=== PATIENT | female | born 1975 | race Caucasian/White ===

== ENCOUNTER 2016-10-06 12:41 | Inpatient (IN) | payer OTHER ==
[2016-10-06 14:34] VITALS: BMI 24.4
[2016-10-06] MEDS ORDERED: guaiFENesin/D-METHORPHAN HB 10 ML UNIT-DOSE CUPS PO PRN (15:23)
[2016-10-06] MEDS ORDERED: P-EPHED 60MG/TRIPROLIDI 2.5MG TABLET PO PRN (15:23)
[2016-10-06] MEDS ORDERED: MAGNESIUM CITRATE 300 ML BOTTLE PO PRN (15:23)
[2016-10-06] MEDS ORDERED: ACETAMINOPHEN 325 MG TABLET (FP) PO PRN (15:23)
[2016-10-06] MEDS ORDERED: MENTHOL/PHENOL 1 EACH UD MM PRN (15:23)
[2016-10-06] MEDS ORDERED: MAG HYDROX/AL HYDROX/SIMETH 30 ML UNIT-DOSE CUP PO PRN (15:23)
[2016-10-06] MEDS ORDERED: MAGNESIUM HYDROX 2400MG/30ML ORAL SUSPENSION 30 ML CUP PO PRN (15:23)
[2016-10-06] MEDS ORDERED: diphenhydrAMINE HCL 50 MG CAPSULE PO PRN (15:23)
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
[2016-10-06] MEDS ORDERED: METHADONE HCL 10 MG TABLET (FOR DETOX USE ONLY) PO ONE ×2 (17:00→23:00)
[2016-10-06] MEDS ORDERED: ONDANSETRON *ODT* 4 MG TABLET SL ONE (17:00)
[2016-10-06] MEDS ORDERED: ONDANSETRON 4 MG TABLET PO ONE (17:00)
[2016-10-06] MEDS: CYCLOBENZAPRINE HCL 10 MG TABLET (FP) PO SCH ×2 (17:03→22:27)
[2016-10-06] MEDS: diazePAM 5 MG TABLET PO PRN ×2 (17:03→22:27)
[2016-10-06 20:32] LABS: URINE APPEARANCE CLOUDY; URINE BILIRUBIN NEGATIVE (NEGATIVE); URINE BLOOD NEGATIVE (NEGATIVE); URINE COLOR DKYELLOW; URINE GLUCOSE (UA) NEGATIVE (NEGATIVE); URINE KETONE NEGATIVE (NEGATIVE); URINE NITRITE NEGATIVE (NEGATIVE); URINE PROTEIN NEGATIVE (NEGATIVE); URINE UROBILINOGEN NEGATIVE E.U./dl (0.2-1.0)
[2016-10-06 20:35] LABS: URINE LEUK ESTERASE TRACE (NEGATIVE)
[2016-10-06 20:39] LABS: CALCIUM OXALATE CRYSTALS RARE /hpf (NONE SEEN); URINE BACTERIA MANY /hpf (NONE SEEN); URINE MUCUS MANY; URINE RBC 3 /hpf (0-3); URINE WBC 12 /hpf (3-5); YEAST RARE
[2016-10-06] MEDS ORDERED: NAPROXEN 500 MG TABLET (FP) PO SCH (22:00)
[2016-10-06] MEDS: ZOLPIDEM TARTRATE 10 MG TABLET (PARK CARE ONLY) PO PRN (22:27)
[2016-10-06] MEDS: THIAMINE HCL 100 MG TABLET (FP) PO SCH (22:27)
[2016-10-07] MEDS: diazePAM 5 MG TABLET PO PRN ×4 (05:04→22:34)
[2016-10-07] MEDS: CYCLOBENZAPRINE HCL 10 MG TABLET (FP) PO SCH ×3 (05:04→22:31)
--- NOTE | 2016-10-07 09:59 | CONSULT ---
[facility] Psychiatric Consult - Data Date of interview: 10/07/16 Admission source: [facility] Identifying data: This is 41 years old female with no psychiatric hospitalization history intoxicated with : Cocaine, Heroin, Cannabis and Nicotine Substance Abuse History: - Smoking Cessation. Smoking history: Current some day smoker. Have you smoked in the past 12 months: Yes. Aproximately how many cigarettes per day: 2. If you are a former smoker, when did you quit?: recently. Hx Chewing Tobacco Use: No. Initiated information on smoking cessation: Yes. 'Breaking Loose' booklet given: 10/06/16. - Substance & Tx. History. Hx Alcohol Use: No. Hx Substance Use: Yes. Substance Use Type: Cocaine, Heroin, Marijuana, Opiates, Prescribed, Tranquilizers. Hx Substance Use Treatment: Yes (recently at [facility]). - Substances Abused. Heroin. Route: Injection. Frequency: Daily. Amount used: 2-3 GMS (20 BAGS). Age of first use: 40. Date of Last Use: 10/05/16. Cocaine. Route: Injection. Frequency: Daily. Amount used: 3 GMS. Age of first use: 40. Date of Last Use : 10/05/16. Marijuana/Hashish. Route: Oral. Frequency: Daily. Amount used : $20. Age of first use: 40. Date of Last Use: 10/05/16 Medical History: LBP Psychiatric History: Patient reprots history of depression, reports not taking psychiatric medications prior to f admission Physical/Sexual Abuse/Trauma History: Denies Additional Comment: Observation. Detox Unit Care Protocol Mental Status Exam - Mental Status Exam Alert and Oriented to: Person Cognitive Function: Fair Patient Appearance: Unkempt Mood: Sad Patient Behavior: Sedated Speech Pattern: Delayed Voice Loudness: Mildly Soft/Quiet Thought Process: Goal Oriented Thought Disorder: Being Controlled Hallucinations: Denies Suicidal Ideation: Denies Homicidal Ideation: Denies Insight/Judgement: Fair Sleep: Difficulty falling asleep Appetite: Fair Muscle strength/Tone: Normal Gait/Station: Shuffling Additional Comments: Observation. Detox Unit Care Protocol Psychiatric Findings - Problem List ([place] 1, 2,3) (1) Benzodiazepine dependence Current Visit: Yes Status: Acute (2) Cocaine dependence Current Visit: No Status: Chronic Qualifiers: Substance use status: uncomplicated Qualified Code(s): F14.20 - Cocaine dependence, uncomplicated (3) Opioid dependence with withdrawal Current Visit: No Status: Chronic (4) Nicotine dependence Current Visit: Yes Status: Acute - Initial Treatment Plan Initial Treatment Plan: Observation. Detox Unit Care Protocol
[2016-10-07] MEDS ORDERED: METHADONE HCL 10 MG TABLET (FOR DETOX USE ONLY) PO ONE (10:00)
[2016-10-07 10:35] LABS: MCH 27.9 pg (25.7-33.7); MCHC 33.4 g/dl (32.0-36.0); MEAN CELL VOLUME 83.5 fl (80-96); MEAN PLT VOLUME 8.6 fl (7.5-11.1); PLATELET COUNT 163 K/MM3 (134-434); RDW 16.2 % (11.6-15.6); WHITE BLOOD COUNT 2.4 K/mm3 (4.0-10.0)
[2016-10-07 11:26] LABS: ALBUMIN 3.3 g/dl (3.4-5.0); ALK PHOS 175 U/L (45-117); ANION GAP 9 (8-16); BILIRUBIN,TOTAL 0.3 mg/dL (0.2-1.0); CALCIUM 8.9 mg/dL (8.5-10.1); CO2 26 mmol/L (21-32); CREATININE 0.7 mg/dL (0.55-1.02); GLUCOSE,RANDOM 91 mg/dL (74-106); SGOT/AST 32 U/L (15-37); SGPT/ALT 72 U/L (12-78); TOT PROT 6.8 g/dl (6.4-8.2)
[2016-10-07] MEDS: PRENATAL VITAMINS W/ FOLIC ACID TABLET (FP) PO SCH (11:27)
--- NOTE | 2016-10-07 11:47 | PN ---
BHS COWS - Scale Resting Pulse: 1= RI 81-100 Sweatin=Flushed/Facial Moisture Restless Observation: 1= Difficult to Sit Still Pupil Size: 0= Normal to Room Light Bone or Joint Aches: 2= Severe Diffuse Aches Runny Nose/ Eye Tearin= Runny Nose/Eyes GI Upset > 30mins: 2= Nausea/Diarrhea Tremor Observation of Outstretched Hands: 2= Slight Tremor Visible Yawning Observation: 2= >3x During Session Anxiety or Irritability: 2=Irritable/Anxious Goose Flesh Skin: 3=Piloerection COWS Score: 19 S Progress Note (SOAP) Subjective: sweats shakes interrupted sleep agitation anxiety i lost alot of weight Objective: 10/07/16 11:46 Vital Signs Temperature 96.3 F L 10/07/16 09:43 Pulse Rate 86 10/07/16 09:43 Respiratory Rate 18 10/07/16 09:43 Blood Pressure 108/70 10/07/16 09:43 O2 Sat by Pulse Oximetry (%) Laboratory Tests 10/06/16 10/07/16 10/07/16 19:00 07:00 07:00 WBC 2.4 L D RBC 4.71 Hgb 13.1 Hct 39.4 MCV 83.5 MCHC 33.4 RDW 16.2 H D Plt Count 163 D MPV 8.6 Sodium 141 Potassium 3.6 Chloride 106 Carbon Dioxide 26 Anion Gap 9 BUN 10 D Creatinine 0.7 Creat Clearance w eGFR > 60 Random Glucose 91 Calcium 8.9 Total Bilirubin 0.3 D AST 32 D ALT 72 D Alkaline Phosphatase 175 H D Total Protein 6.8 Albumin 3.3 L Urine Color Dkyellow Urine Appearance Cloudy Urine pH 5.0 Ur Specific [place] 1.024 Urine Protein Negative Urine Glucose (UA) Negative Urine Ketones Negative Urine Blood Negative Urine Nitrite Negative Urine Bilirubin Negative Urine Urobilinogen Negative Ur Leukocyte Esterase Trace H Urine RBC 3 Urine WBC 12 Ur Epithelial Cells Moderate Calcium Oxalate Crystal Rare Urine Bacteria Many Urine Mucus Many Urine Yeast Rare awake/alert ambulating no acute distress repeat u/a Assessment: 10/07/16 11:47 withdrawal sx Plan: continue detox increase fluids repeat u/a
--- NOTE | 2016-10-07 12:30 | EKG ---
Test Reason : Blood Pressure : / mmHG Vent. Rate : 070 BPM Atrial Rate : 070 BPM P-R Int : 156 ms QRS Dur : 096 ms QT Int : 388 ms P-R-T Axes : 067 082 061 degrees QTc Int : 419 ms NORMAL SINUS RHYTHM POSSIBLE LEFT ATRIAL ENLARGEMENT EARLY REPOLARIZATION BORDERLINE ECG WHEN COMPARED WITH ECG OF 19-DEC-2015 22:41, NO SIGNIFICANT CHANGE WAS FOUND Confirmed by PETAR HERRERA, BRYN ([id number]) on 10/07/2016 12:30:15 PM Referred By: Confirmed By:BRYN DAVEY MD
[2016-10-07 13:15] LABS: HIV 1 & 2 AB NEGATIVE; HIV 1 AGp24 NEGATIVE
[2016-10-07] MEDS: THIAMINE HCL 100 MG TABLET (FP) PO SCH (22:31)
[2016-10-07] MEDS: ZOLPIDEM TARTRATE 10 MG TABLET (PARK CARE ONLY) PO PRN (22:34)
[2016-10-08] MEDS: CYCLOBENZAPRINE HCL 10 MG TABLET (FP) PO SCH ×3 (05:11→22:11)
[2016-10-08] MEDS: diazePAM 5 MG TABLET PO PRN ×4 (05:12→22:11)
[2016-10-08] MEDS ORDERED: METHADONE HCL 5 MG TABLET (FOR DETOX USE ONLY) PO ONE (10:00)
[2016-10-08] MEDS: PRENATAL VITAMINS W/ FOLIC ACID TABLET (FP) PO SCH (10:22)
[2016-10-08] MEDS: ONDANSETRON *ODT* 4 MG TABLET SL PRN (10:58)
--- NOTE | 2016-10-08 13:00 | PN ---
S COWS - Scale Resting Pulse: 1= [place] 81-100 Sweatin=Flushed/Facial Moisture Restless Observation: 1= Difficult to Sit Still Pupil Size: 1= Pupils >than Normal Bone or Joint Aches: 2= Severe Diffuse Aches Runny Nose/ Eye Tearin= Nasal Congestion GI Upset > 30mins: 2= Nausea/Diarrhea Tremor Observation of Outstretched Hands: 1= Tremor [place], Not Seen Yawning Observation: 1= 1-2x During Session Anxiety or Irritability: 2=Irritable/Anxious Goose Flesh Skin: 0=Smooth Skin COWS Score: 14 S Progress Note (SOAP) Subjective: INTERRUPTED SLEEP, SWEATS ,NAUSEA LBP, LEG PAINS Objective: 10/08/16 12:58 Vital Signs Temperature 97.5 F L 10/08/16 10:09 Pulse Rate 94 H 10/08/16 10:09 Respiratory Rate 20 10/08/16 10:09 Blood Pressure 105/63 10/08/16 10:09 O2 Sat by Pulse Oximetry (%) Laboratory Tests 10/06/16 10/06/16 10/07/16 09:26 19:00 07:00 WBC 2.4 L D RBC 4.71 Hgb 13.1 Hct 39.4 MCV 83.5 MCHC 33.4 RDW 16.2 H D Plt Count 163 D MPV 8.6 Sodium Potassium Chloride Carbon Dioxide Anion Gap BUN Creatinine Creat Clearance w eGFR Random Glucose Calcium Total Bilirubin AST ALT Alkaline Phosphatase Total Protein Albumin Urine Color Dkyellow Urine Appearance Cloudy Urine pH 5.0 Ur Specific [place] 1.024 Urine Protein Negative Urine Glucose (UA) Negative Urine Ketones Negative Urine Blood Negative Urine Nitrite Negative Urine Bilirubin Negative Urine Urobilinogen Negative Ur Leukocyte Esterase Trace H Urine RBC 3 Urine WBC 12 Ur Epithelial Cells Moderate Calcium Oxalate Crystal Rare Urine Bacteria Many Urine Mucus Many Urine Yeast Rare RPR Titer HIV 1&2 Antibody Screen Negative HIV P24 Antigen Negative 10/07/16 10/07/16 07:00 07:00 WBC RBC Hgb Hct MCV MCHC RDW Plt Count MPV Sodium 141 Potassium 3.6 Chloride 106 Carbon Dioxide 26 Anion Gap 9 BUN 10 D Creatinine 0.7 Creat Clearance w eGFR > 60 Random Glucose 91 Calcium 8.9 Total Bilirubin 0.3 D AST 32 D ALT 72 D Alkaline Phosphatase 175 H D Total Protein 6.8 Albumin 3.3 L Urine Color Urine Appearance Urine pH Ur Specific [place] Urine Protein Urine Glucose (UA) Urine Ketones Urine Blood Urine Nitrite Urine Bilirubin Urine Urobilinogen Ur Leukocyte Esterase Urine RBC Urine WBC Ur Epithelial Cells Calcium Oxalate Crystal Urine Bacteria Urine Mucus Urine Yeast RPR Titer Nonreactive HIV 1&2 Antibody Screen HIV P24 Antigen PT AOX3 , AMBUALTING Assessment: 10/08/16 12:59 WITHDRAWL SX'S LBP Plan: CONT. DETOX INCREASE FLUIDS ANALGESIC BALM MOTRIN PRN
[2016-10-08] MEDS: ZOLPIDEM TARTRATE 10 MG TABLET (PARK CARE ONLY) PO PRN (22:10)
[2016-10-08] MEDS: THIAMINE HCL 100 MG TABLET (FP) PO SCH (22:11)
[2016-10-08] MEDS: METHYL SALICYLATE/MENTHOL OINT 30 GM TUBE TP SCH (22:12)
[2016-10-09] MEDS: CYCLOBENZAPRINE HCL 10 MG TABLET (FP) PO SCH ×3 (05:51→22:13)
[2016-10-09] MEDS: diazePAM 5 MG TABLET PO PRN ×3 (05:52→15:11)
[2016-10-09] MEDS ORDERED: METHADONE HCL 5 MG TABLET (FOR DETOX USE ONLY) PO ONE (10:00)
[2016-10-09] MEDS: PRENATAL VITAMINS W/ FOLIC ACID TABLET (FP) PO SCH (10:09)
[2016-10-09] MEDS: METHYL SALICYLATE/MENTHOL OINT 30 GM TUBE TP SCH ×2 (10:10→22:54)
--- NOTE | 2016-10-09 10:47 | PN ---
BHS Progress Note (SOAP) Subjective: shakes sweats interrupted sleep agitation body aches Objective: 10/09/16 10:46 Vital Signs Temperature 98.1 F 10/09/16 10:05 Pulse Rate 98 H 10/09/16 10:05 Respiratory Rate 18 10/09/16 10:05 Blood Pressure 115/73 10/09/16 10:05 O2 Sat by Pulse Oximetry (%) Laboratory Tests 10/06/16 10/06/16 10/07/16 09:26 19:00 07:00 WBC 2.4 L D RBC 4.71 Hgb 13.1 Hct 39.4 MCV 83.5 MCHC 33.4 RDW 16.2 H D Plt Count 163 D MPV 8.6 Sodium Potassium Chloride Carbon Dioxide Anion Gap BUN Creatinine Creat Clearance w eGFR Random Glucose Calcium Total Bilirubin AST ALT Alkaline Phosphatase Total Protein Albumin Urine Color Dkyellow Urine Appearance Cloudy Urine pH 5.0 Ur Specific [place] 1.024 Urine Protein Negative Urine Glucose (UA) Negative Urine Ketones Negative Urine Blood Negative Urine Nitrite Negative Urine Bilirubin Negative Urine Urobilinogen Negative Ur Leukocyte Esterase Trace H Urine RBC 3 Urine WBC 12 Ur Epithelial Cells Moderate Calcium Oxalate Crystal Rare Urine Bacteria Many Urine Mucus Many Urine Yeast Rare RPR Titer HIV 1&2 Antibody Screen Negative HIV P24 Antigen Negative 10/07/16 10/07/16 07:00 07:00 WBC RBC Hgb Hct MCV MCHC RDW Plt Count MPV Sodium 141 Potassium 3.6 Chloride 106 Carbon Dioxide 26 Anion Gap 9 BUN 10 D Creatinine 0.7 Creat Clearance w eGFR > 60 Random Glucose 91 Calcium 8.9 Total Bilirubin 0.3 D AST 32 D ALT 72 D Alkaline Phosphatase 175 H D Total Protein 6.8 Albumin 3.3 L Urine Color Urine Appearance Urine pH Ur Specific [place] Urine Protein Urine Glucose (UA) Urine Ketones Urine Blood Urine Nitrite Urine Bilirubin Urine Urobilinogen Ur Leukocyte Esterase Urine RBC Urine WBC Ur Epithelial Cells Calcium Oxalate Crystal Urine Bacteria Urine Mucus Urine Yeast RPR Titer Nonreactive HIV 1&2 Antibody Screen HIV P24 Antigen awake/alert ambulating no acute distress Assessment: 10/09/16 10:46 withdrawal sx Plan: continue detox increase fluids motrin/tylenol prn
[2016-10-09] MEDS: THIAMINE HCL 100 MG TABLET (FP) PO SCH (22:13)
[2016-10-09] MEDS: ZOLPIDEM TARTRATE 10 MG TABLET (PARK CARE ONLY) PO PRN (22:13)
[2016-10-10] MEDS: CYCLOBENZAPRINE HCL 10 MG TABLET (FP) PO SCH ×3 (06:10→22:45)
[2016-10-10] MEDS: ONDANSETRON *ODT* 4 MG TABLET SL PRN ×2 (06:10→17:56)
[2016-10-10] MEDS ORDERED: METHADONE HCL 10 MG TABLET (FOR DETOX USE ONLY) PO ONE (10:00)
[2016-10-10] MEDS: PRENATAL VITAMINS W/ FOLIC ACID TABLET (FP) PO SCH (10:49)
[2016-10-10] MEDS: METHYL SALICYLATE/MENTHOL OINT 30 GM TUBE TP SCH ×2 (10:49→23:00)
[2016-10-10] MEDS: hydrOXYzine PAMOATE 50 MG CAPSULE (FP) PO PRN ×3 (10:49→22:45)
--- NOTE | 2016-10-10 12:14 | PN ---
BHS Progress Note (SOAP) Subjective: nausea, sweats, interrupted sleep, anxiety, tremors Objective: 10/10/16 12:13 Vital Signs - 8 hr 10/10/16 10/10/16 06:00 10:35 Temperature 96.4 F L 97.7 F Pulse Rate 81 101 H Respiratory 18 20 Rate Blood Pressure 130/78 108/73 Laboratory Tests 10/06/16 10/06/16 10/07/16 09:26 19:00 07:00 WBC 2.4 L D RBC 4.71 Hgb 13.1 Hct 39.4 MCV 83.5 MCHC 33.4 RDW 16.2 H D Plt Count 163 D MPV 8.6 Sodium Potassium Chloride Carbon Dioxide Anion Gap BUN Creatinine Creat Clearance w eGFR Random Glucose Calcium Total Bilirubin AST ALT Alkaline Phosphatase Total Protein Albumin Urine Color Dkyellow Urine Appearance Cloudy Urine pH 5.0 Ur Specific [place] 1.024 Urine Protein Negative Urine Glucose (UA) Negative Urine Ketones Negative Urine Blood Negative Urine Nitrite Negative Urine Bilirubin Negative Urine Urobilinogen Negative Ur Leukocyte Esterase Trace H Urine RBC 3 Urine WBC 12 Ur Epithelial Cells Moderate Calcium Oxalate Crystal Rare Urine Bacteria Many Urine Mucus Many Urine Yeast Rare RPR Titer Hepatitis C Antibody HIV 1&2 Antibody Screen Negative HIV P24 Antigen Negative 10/07/16 10/07/16 10/09/16 07:00 07:00 07:00 WBC RBC Hgb Hct MCV MCHC RDW Plt Count MPV Sodium 141 Potassium 3.6 Chloride 106 Carbon Dioxide 26 Anion Gap 9 BUN 10 D Creatinine 0.7 Creat Clearance w eGFR > 60 Random Glucose 91 Calcium 8.9 Total Bilirubin 0.3 D AST 32 D ALT 72 D Alkaline Phosphatase 175 H D Total Protein 6.8 Albumin 3.3 L Urine Color Urine Appearance Urine pH Ur Specific [place] Urine Protein Urine Glucose (UA) Urine Ketones Urine Blood Urine Nitrite Urine Bilirubin Urine Urobilinogen Ur Leukocyte Esterase Urine RBC Urine WBC Ur Epithelial Cells Calcium Oxalate Crystal Urine Bacteria Urine Mucus Urine Yeast RPR Titer Nonreactive Hepatitis C Antibody 8.2 H HIV 1&2 Antibody Screen HIV P24 Antigen Hep cab +ve Assessment: 10/10/16 12:13 withdrawal sx, hepatitis c+ Plan: cont detox, patient counseled re: hep c antibody status and need for follow up
[2016-10-10 22:31] VITALS: TEMP 98.1
[2016-10-10] MEDS: THIAMINE HCL 100 MG TABLET (FP) PO SCH (22:45)
[2016-10-11] MEDS ORDERED: TRIMETHOBENZAMIDE HCL 200MG/2ML INJ IM PRN (02:29)
[2016-10-11] MEDS: LOPERAMIDE HCL 2 MG CAPSULE PO PRN ×2 (03:07→09:44)
[2016-10-11] MEDS ORDERED: METHADONE HCL 5 MG TABLET (FOR DETOX USE ONLY) PO ONE (06:00)
[2016-10-11] MEDS: CYCLOBENZAPRINE HCL 10 MG TABLET (FP) PO SCH (06:09)
[2016-10-11 06:55] VITALS: BP 121/70; PULSE 99
--- NOTE | 2016-10-11 08:59 | DS ---
[facility] Detox Discharge Summary Admission Date: 10/06/16 Discharge Date: 10/11/16 - History Present History: Opioid Dependence Pertinent Past History: BACK PAIN - Physical Exam Results Vital Signs: Vital Signs Temperature 98.1 F 10/11/16 06:00 Pulse Rate 99 H 10/11/16 06:00 Respiratory Rate 16 10/11/16 06:00 Blood Pressure 121/70 10/11/16 06:00 O2 Sat by Pulse Oximetry (%) Pertinent Admission Physical Exam Findings: WITHDRAWAL SX. Laboratory Last Values WBC 2.4 K/mm3 (4.0-10.0) L D 10/07/16 07:00 RBC 4.71 M/mm3 (3.60-5.2) 10/07/16 07:00 Hgb 13.1 GM/dL (10.7-15.3) 10/07/16 07:00 Hct 39.4 % (32.4-45.2) 10/07/16 07:00 MCV 83.5 fl (80-96) 10/07/16 07:00 MCHC 33.4 g/dl (32.0-36.0) 10/07/16 07:00 RDW 16.2 % (11.6-15.6) H D 10/07/16 07:00 Plt Count 163 K/MM3 (134-434) D 10/07/16 07:00 MPV 8.6 fl (7.5-11.1) 10/07/16 07:00 Sodium 141 mmol/L (136-145) 10/07/16 07:00 Potassium 3.6 mmol/L (3.5-5.1) 10/07/16 07:00 Chloride 106 mmol/L (98-107) 10/07/16 07:00 Carbon Dioxide 26 mmol/L (21-32) 10/07/16 07:00 Anion Gap 9 (8-16) 10/07/16 07:00 BUN 10 mg/dL (7-18) D 10/07/16 07:00 Creatinine 0.7 mg/dL (0.55-1.02) 10/07/16 07:00 Creat Clearance w eGFR > 60 (>60) 10/07/16 07:00 Random Glucose 91 mg/dL (74-106) 10/07/16 07:00 Calcium 8.9 mg/dL (8.5-10.1) 10/07/16 07:00 Total Bilirubin 0.3 mg/dL (0.2-1.0) D 10/07/16 07:00 AST 32 U/L (15-37) D 10/07/16 07:00 ALT 72 U/L (12-78) D 10/07/16 07:00 Alkaline Phosphatase 175 U/L (45-117) H D 10/07/16 07:00 Total Protein 6.8 g/dl (6.4-8.2) 10/07/16 07:00 Albumin 3.3 g/dl (3.4-5.0) L 10/07/16 07:00 Urine Color Dkyellow 10/06/16 19:00 Urine Appearance Cloudy 10/06/16 19:00 Urine pH 5.0 (5.0-8.0) 10/06/16 19:00 Ur Specific [place] 1.024 (1.001-1.035) 10/06/16 19:00 Urine Protein Negative (NEGATIVE) 10/06/16 19:00 Urine Glucose (UA) Negative (NEGATIVE) 10/06/16 19:00 Urine Ketones Negative (NEGATIVE) 10/06/16 19:00 Urine Blood Negative (NEGATIVE) 10/06/16 19:00 Urine Nitrite Negative (NEGATIVE) 10/06/16 19:00 Urine Bilirubin Negative (NEGATIVE) 10/06/16 19:00 Urine Urobilinogen Negative E.U./dl (0.2-1.0) 10/06/16 19:00 Ur Leukocyte Esterase Trace (NEGATIVE) H 10/06/16 19:00 Urine RBC 3 /hpf (0-3) 10/06/16 19:00 Urine WBC 12 /hpf (3-5) 10/06/16 19:00 Ur Epithelial Cells Moderate /hpf (FEW) 10/06/16 19:00 Calcium Oxalate Crystal Rare /hpf (NONE SEEN) 10/06/16 19:00 Urine Bacteria Many /hpf (NONE SEEN) 10/06/16 19:00 Urine Mucus Many 10/06/16 19:00 Urine Yeast Rare 10/06/16 19:00 RPR Titer Nonreactive (NONREACTIVE) 10/07/16 07:00 Hepatitis C Antibody 8.2 s/co ratio (0.0-0.9) H 10/09/16 07:00 HIV 1&2 Antibody Screen Negative 10/06/16 09:26 HIV P24 Antigen Negative 10/06/16 09:26 LABS NOTED - Treatment Hospital Course: Detox Protocol Followed, Detoxed Safely, Responded well, Discharged Condition Good, Rehab Referral Accepted - Medication Discharge Medications: Ambulatory Orders NK [No Known Home Medication] 12/19/15 - Diagnosis (1) Chronic back pain Current Visit: Yes Status: Acute Qualifiers: Back pain location: low back pain Back pain laterality: bilateral Sciatica presence: without sciatica Qualified Code(s): M54.5 - Low back pain; G89.29 - Other chronic pain (2) Nicotine dependence Current Visit: Yes Status: Acute (3) Cocaine dependence Current Visit: No Status: Chronic Qualifiers: Substance use status: uncomplicated Qualified Code(s): F14.20 - Cocaine dependence, uncomplicated (4) Opioid dependence with withdrawal Current Visit: No Status: Chronic - AMA Did Patient Leave Against Medical Advice: No
[2016-10-11] MEDS: hydrOXYzine PAMOATE 50 MG CAPSULE (FP) PO PRN (09:31)
[2016-10-11] MEDS: ONDANSETRON *ODT* 4 MG TABLET SL PRN (09:32)
[2016-10-15 00:08] LABS: HCV LOG 10 1.602 (.)
== END 2016-10-11 10:45 | disposition home or self-care (01) | DRG 773 ==
LOC: YASAS 12:41 → Y6N 16:08
PROVIDERS: ADMIT Internal Medicine Addiction Medicine; ATTEND Internal Medicine Addiction Medicine
PROC: HZ2ZZZZ Detoxification Services for Substance Abuse Treatment (ICD-10-PCS; principal; 2016-10-06)
DX: F11.23 Opioid dependence with withdrawal (principal); F14.20 Cocaine dependence, uncomplicated; F12.20 Cannabis dependence, uncomplicated; F17.210 Nicotine dependence, cigarettes, uncomplicated; F32.9 Major depressive disorder, single episode, unspecified; M54.5 Low back pain; G89.29 Other chronic pain; B18.2 Chronic viral hepatitis C; E86.0 Dehydration; Z98.1 Arthrodesis status
CPT/HCPCS: 36415; 80053; 81003; 81015; 85027; 86593; 86803; 87389; 87522; 93005; 93010

== ENCOUNTER 2017-05-14 19:05 | Inpatient (IN) | payer OTHER ==
[2017-05-14 19:34] VITALS: BMI 22.4
--- NOTE | 2017-05-14 19:48 | HP ---
Admission ROS [facility] - [facility] Chief Complaint: I WANT TO GO TO REHAB Allergies/Adverse Reactions: Allergies Allergy/AdvReac Type Severity Reaction Status Date / Time amoxicillin Allergy Verified 05/14/17 19:18 ibuprofen Allergy Verified 05/14/17 19:18 History of Present Illness: 42 YEARS OLD FEMALE WITH LONG HISTORY OF MARIJUANA NICOTINE DEPENDENCE HAS ASTHMA AND CHRONIC BACK PAIN, ON SUBOXONE 12-3 MG BID SINCE 10/2016, PATIENT IS DOING WELL BUT BEGIN SMOKING MARIJUANA HAS WEIGHT LOSS IS ADMITTED TO REHAB Exam Limitations: No Limitations - Ebola screening Have you traveled outside of the country in the last 21 days: No Have you had contact with anyone from an Ebola affected area: No Have you been sick,other than usual withdrawal symptoms: No Do you have a fever: No - Review of Systems Constitutional: Loss of Appetite, Unintentional Wgt. Loss, Unexplained wgt Loss , Other (SWEATING TREATED WITH CLONIDINE 0.1 MG PRN Q6H) EENT: reports: No Symptoms Reported Respiratory: reports: SOB with Exertion Cardiac: reports: No Symptoms Reported GI: reports: No Symptoms Reported : reports: No Symptoms Reported Musculoskeletal: reports: Neck Pain (2013 CERVICAL FUSION) Integumentary: reports: No Symptoms Reported Neuro: reports: No Symptoms reported Endocrine: reports: No Symptoms Reported Hematology: reports: No Symptoms Reported Psychiatric: reports: Judgement Intact, Orientated x3, Depressed Other Systems: Reviewed and Negative Patient History - Patient Medical History Hx Anemia: No Hx Asthma: Yes Hx Chronic Obstructive Pulmonary Disease (COPD): No Hx Cancer: No Hx Cardiac Disorders: No Hx Congestive Heart Failure: No Hx Hypertension: No Hx Hypercholesterolemia: No Hx Pacemaker: No HX Cerebrovascular Accident: No Hx Seizures: No Hx Dementia: No Hx Diabetes: No Hx Gastrointestinal Disorders: No Hx Liver Disease: No Hx Genitourinary Disorders: No Hx Sexually Transmitted Disorders: No Hx Renal Disease (ESRD): No Hx Thyroid Disease: No Hx Human Immunodeficiency Virus (HIV): No Hx Hepatitis C: No Hx Depression: Yes Hx Suicide Attempt: No (denies) Hx Bipolar Disorder: No Hx Schizophrenia: No - Patient Surgical History Past Surgical History: Yes Hx Neurologic Surgery: No Hx Cataract Extraction: No Hx Cardiac Surgery: No Hx Lung Surgery: No Hx Breast Surgery: No Hx Breast Biopsy: No Hx Abdominal Surgery: No Hx Appendectomy: No Hx Cholecystectomy: Yes (11/2014) Hx Genitourinary Surgery: No Hx Section: No Hx Orthopedic Surgery: Yes (cervical fusion, 11/2014) Hx Hysterectomy: No Other Surgical History: ENDOMETRIOSIS X 4 Anesthesia Reaction: No - PPD History Previous Implant?: Yes Documented Results: Negative w/proof Implanted On Prior [facility] Admission?: Yes Date: 12/22/15 PPD to be Administered?: Yes - Reproductive History Patient is a Female of Child Bearing Age (11 -55 yrs old): Yes Last Menstrual Period: 04/27/17 Patient : No - Smoking Cessation Smoking history: Current every day smoker Have you smoked in the past 12 months: Yes Aproximately how many cigarettes per day: 2 If you are a former smoker, when did you quit?: recently Hx Chewing Tobacco Use: No Initiated information on smoking cessation: Yes 'Breaking Loose' booklet given: 05/14/17 - Substance & Tx. History Hx Alcohol Use: No Hx Substance Use: Yes Substance Use Type: Marijuana Hx Substance Use Treatment: Yes (10/06-10/11/16 [facility] - Substances Abused Marijuana/Hashish Route: Smoking Frequency: 3-6 times per week Amount used: 3 JOINTS Age of first use: 41 Date of Last Use: 05/14/17 Family Disease History - Family Disease History Family Disease History: Diabetes: Daughter Other Family History: ONLY CHILD Admission Physical Exam BHS - Vital Signs Vital Signs: Vital Signs - 24 hr 05/14/17 19:18 Temperature 97.0 F L Pulse Rate 80 Respiratory 20 Rate Blood Pressure 122/80 - Physical General Appearance: Yes: No Apparent Distress, Appropriately Dressed, Thin HEENTM: Yes: Hearing grossly Normal, Normal ENT Inspection, Normocephalic, Normal Voice Respiratory: Yes: Chest Non-Tender, No Respiratory Distress, No Accessory Muscle Use, Wheezing, Expiration Neck: Yes: Supple, Trachea in good position Breast: Yes: Breasts Symetrical Cardiology: Yes: Regular Rhythm, Regular Rate, S1, S2 Abdominal: Yes: Normal Bowel Sounds, Non Tender, Soft Genitourinary: Yes: Within Normal Limits Back: Yes: Normal Inspection Musculoskeletal: Yes: full range of Motion, Gait Steady, Back pain Extremities: Yes: Normal Inspection, Normal Range of Motion, Non-Tender Neurological: Yes: Fully Oriented, Alert, Motor Strength 5/5, Normal Response, Depressed Affect Integumentary: Yes: Warm Lymphatic: Yes: Within Normal Limits - Diagnostic (1) Nicotine dependence Current Visit: Yes Status: Acute Qualifiers: Nicotine product type: cigarettes Substance use status: in withdrawal Qualified Code(s): F17.213 - Nicotine dependence, cigarettes, with withdrawal (2) Depression Current Visit: Yes Status: Suspected Qualifiers: Depression Type: dysthymia Qualified Code(s): F34.1 - Dysthymic disorder (3) Cannabis dependence, uncomplicated Current Visit: Yes Status: Acute (4) Chronic cervical arteriopathy Current Visit: Yes Status: Chronic (5) Encounter for monitoring Suboxone maintenance therapy Current Visit: Yes Status: Chronic Comment: 12 MG - 3 MG BID SINCE 10/2016 LAST DOSE 05/14/17 PM (6) Asthma Current Visit: Yes Status: Chronic Qualifiers: Asthma severity: mild persistent Asthma complication type: with status asthmaticus Qualified Code(s): J45.32 - Mild persistent asthma with status asthmaticus Cleared for Admission [facility] - Detox or Rehab [facility] Level of Care: Observation Bed Detox Regimen/Protocol: Not Applicable [facility] Breath Alcohol Content Breath Alcohol Content: 0 Urine Pregancy Test - Result Urine Test Results: Negative- NO Line Present Urine Drug Screen - Results Drug Screen Negative: No Urine Drug Screen Results: THC-Marijuana, MET-Methamphetamine
[2017-05-14] MEDS ORDERED: MAGNESIUM CITRATE 300 ML BOTTLE PO PRN (19:55)
[2017-05-14] MEDS ORDERED: NICOTINE POLACRILEX 2 MG GUM BC PRN (19:55)
[2017-05-14] MEDS ORDERED: MAG HYDROX/AL HYDROX/SIMETH 30 ML UNIT-DOSE CUP PO PRN (19:55)
[2017-05-14] MEDS ORDERED: guaiFENesin/D-METHORPHAN HB 10 ML UNIT-DOSE CUPS PO PRN (19:55)
[2017-05-14] MEDS ORDERED: ACETAMINOPHEN 325 MG TABLET (FP) PO PRN (19:55)
[2017-05-14] MEDS ORDERED: MAGNESIUM HYDROX 2400MG/30ML ORAL SUSPENSION 30 ML CUP PO PRN (19:55)
[2017-05-14] MEDS ORDERED: P-EPHED 60MG/TRIPROLIDI 2.5MG TABLET PO PRN (19:55)
[2017-05-14] MEDS ORDERED: LOPERAMIDE HCL 2 MG CAPSULE PO PRN (19:55)
[2017-05-14] MEDS ORDERED: ALBUTEROL SO4 6.7 GM HFA INHALER IH PRN (20:04)
[2017-05-14] MEDS ORDERED: ALBUTEROL SO4 2.5/IPRATROPIUM 0.5 INH SOL 3 ML VIAL.NEB. NEB PRN (20:10)
[2017-05-14 21:35] LABS: URINE APPEARANCE CLOUDY; URINE BILIRUBIN NEGATIVE (NEGATIVE); URINE BLOOD NEGATIVE (NEGATIVE); URINE COLOR LT. YELLOW; URINE GLUCOSE (UA) NEGATIVE (NEGATIVE); URINE KETONE NEGATIVE (NEGATIVE); URINE LEUK ESTERASE NEGATIVE (NEGATIVE); URINE NITRITE NEGATIVE (NEGATIVE); URINE PROTEIN NEGATIVE (NEGATIVE); URINE UROBILINOGEN 0.2 mg/dL (0.2-1.0)
[2017-05-14] MEDS ORDERED: BUPRENORPHINE HCL SL SCH (22:00)
[2017-05-14] MEDS ORDERED: [UNRECOGNIZED DRUG - OTHER] SL SCH (22:00)
[2017-05-14] MEDS ORDERED: NALOXONE HCL SL SCH (22:00)
[2017-05-14] MEDS: IBUPROFEN 400 MG TABLET (FP) PO PRN (23:11)
[2017-05-14] MEDS: THIAMINE HCL 100 MG TABLET (FP) PO SCH (23:11)
[2017-05-15] MEDS: BUPRENORPHINE/NALOXONE 8 MG/2 MG FILM PACKET SL SCH ×3 (07:12→22:09)
[2017-05-15] MEDS ORDERED: TUBERCULIN PPD 5 TU/0.1ML VIAL ID ONE (07:22)
[2017-05-15] MEDS: cloNIDine HCL 0.1 MG TABLET PO PRN (08:03)
[2017-05-15] MEDS: METOCLOPRAMIDE HCL 10 MG TABLET (FP) PO PRN (08:09)
[2017-05-15] MEDS: NICOTINE 14 MG/24 HOURS TOPICAL PATCH TD SCH (10:28)
[2017-05-15] MEDS: PRENATAL VITAMINS W/ FOLIC ACID TABLET (FP) PO SCH (10:28)
--- NOTE | 2017-05-15 12:50 | EKG ---
Test Reason : Blood Pressure : / mmHG Vent. Rate : 060 BPM Atrial Rate : 060 BPM P-R Int : 152 ms QRS Dur : 090 ms QT Int : 410 ms P-R-T Axes : 030 084 058 degrees QTc Int : 410 ms NORMAL SINUS RHYTHM EARLY REPOLARIZATION NORMAL ECG WHEN COMPARED WITH ECG OF 06-OCT-2016 17:16, NO SIGNIFICANT CHANGE WAS FOUND REPEAT EKG IF CLINICALLY INDICATED Confirmed by COLT JIMÉNEZ MD ([id number]) on 05/15/2017 12:50:46 PM Referred By: Rosalba Acosta Confirmed By:COLT JIMÉNEZ MD
[2017-05-15] MEDS ORDERED: BUPRENORPHINE/NALOXONE 2 MG/0.5 MG FILM PACKET ONE (18:14)
[2017-05-15] MEDS ORDERED: BUPRENORPHINE/NALOXONE 8 MG/2 MG FILM PACKET ONE (18:15)
[2017-05-15] MEDS: BUPRENORPHINE/NALOXONE 1 EACH, BUPRENORPHINE/NALOXONE 2 EACH SL SCH (19:06)
[2017-05-15] MEDS: THIAMINE HCL 100 MG TABLET (FP) PO SCH (22:09)
[2017-05-15] MEDS: diphenhydrAMINE HCL 50 MG CAPSULE PO PRN (22:10)
[2017-05-16] MEDS ORDERED: BUPRENORPHINE/NALOXONE 2 MG/0.5 MG FILM PACKET ONE ×2 (05:41→17:16)
[2017-05-16] MEDS ORDERED: BUPRENORPHINE/NALOXONE 8 MG/2 MG FILM PACKET ONE ×2 (05:41→17:17)
[2017-05-16] MEDS: BUPRENORPHINE/NALOXONE 1 EACH, BUPRENORPHINE/NALOXONE 2 EACH SL SCH ×2 (06:57→17:30)
[2017-05-16] MEDS: NICOTINE 14 MG/24 HOURS TOPICAL PATCH TD SCH (10:30)
[2017-05-16] MEDS: PRENATAL VITAMINS W/ FOLIC ACID TABLET (FP) PO SCH (10:30)
[2017-05-16 10:32] LABS: MCH 30.2 pg (25.7-33.7); MCHC 33.6 g/dl (32.0-36.0); MEAN CELL VOLUME 89.8 fl (80-96); MEAN PLT VOLUME 9.9 fl (7.5-11.1); PLATELET COUNT 183 K/MM3 (134-434); RDW 13.5 % (11.6-15.6); WHITE BLOOD COUNT 5.5 K/mm3 (4.0-10.0)
[2017-05-16 11:03] LABS: ALBUMIN 3.9 g/dl (3.4-5.0); ALK PHOS 74 U/L (45-117); ANION GAP 7 (8-16); BILIRUBIN,TOTAL 0.6 mg/dL (0.2-1.0); CALCIUM 8.9 mg/dL (8.5-10.1); CO2 29 mmol/L (21-32); CREATININE 0.7 mg/dL (0.55-1.02); GLUCOSE,RANDOM 93 mg/dL (74-106); SGOT/AST 18 U/L (15-37); SGPT/ALT 34 U/L (12-78); TOT PROT 6.7 g/dl (6.4-8.2)
[2017-05-16 11:28] LABS: HIV 1 & 2 AB NEGATIVE; HIV 1 AGp24 NEGATIVE
[2017-05-16] MEDS: THIAMINE HCL 100 MG TABLET (FP) PO SCH (21:49)
[2017-05-16] MEDS: diphenhydrAMINE HCL 50 MG CAPSULE PO PRN (21:50)
[2017-05-16] MEDS: cloNIDine HCL 0.1 MG TABLET PO PRN (21:51)
[2017-05-16] MEDS ORDERED: PT OWN MED DRAWER 7, Y5N ONE (21:52)
[2017-05-16] MEDS: METOCLOPRAMIDE HCL 10 MG TABLET (FP) PO PRN (23:10)
[2017-05-17] MEDS ORDERED: BUPRENORPHINE/NALOXONE 2 MG/0.5 MG FILM PACKET ONE ×2 (03:29→17:24)
[2017-05-17] MEDS ORDERED: BUPRENORPHINE/NALOXONE 8 MG/2 MG FILM PACKET ONE ×2 (03:29→17:25)
[2017-05-17] MEDS: BUPRENORPHINE/NALOXONE 1 EACH, BUPRENORPHINE/NALOXONE 2 EACH SL SCH ×2 (06:42→17:49)
[2017-05-17] MEDS: NICOTINE 14 MG/24 HOURS TOPICAL PATCH TD SCH (10:25)
[2017-05-17] MEDS: PRENATAL VITAMINS W/ FOLIC ACID TABLET (FP) PO SCH (10:32)
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
[2017-05-17] MEDS: THIAMINE HCL 100 MG TABLET (FP) PO SCH (21:57)
[2017-05-17] MEDS: diphenhydrAMINE HCL 50 MG CAPSULE PO PRN (21:57)
[2017-05-17] MEDS: cloNIDine HCL 0.1 MG TABLET PO PRN (21:57)
[2017-05-18] MEDS: diphenhydrAMINE HCL 50 MG CAPSULE PO PRN ×2 (00:35→21:43)
[2017-05-18] MEDS ORDERED: BUPRENORPHINE/NALOXONE 8 MG/2 MG FILM PACKET ONE ×2 (03:20→15:59)
[2017-05-18] MEDS ORDERED: BUPRENORPHINE/NALOXONE 2 MG/0.5 MG FILM PACKET ONE ×2 (03:20→15:58)
[2017-05-18] MEDS: BUPRENORPHINE/NALOXONE 1 EACH, BUPRENORPHINE/NALOXONE 2 EACH SL SCH ×2 (06:52→17:52)
[2017-05-18] MEDS: NICOTINE 14 MG/24 HOURS TOPICAL PATCH TD SCH (10:40)
[2017-05-18] MEDS: PRENATAL VITAMINS W/ FOLIC ACID TABLET (FP) PO SCH (10:41)
[2017-05-18] MEDS: THIAMINE HCL 100 MG TABLET (FP) PO SCH (21:41)
[2017-05-19] MEDS: MENTHOL/PHENOL 1 EACH UD MM PRN ×3 (03:09→21:53)
[2017-05-19] MEDS: hydrOXYzine PAMOATE 50 MG CAPSULE (FP) PO PRN ×2 (03:09→18:43)
[2017-05-19] MEDS ORDERED: BUPRENORPHINE/NALOXONE 8 MG/2 MG FILM PACKET ONE ×2 (03:23→16:55)
[2017-05-19] MEDS ORDERED: BUPRENORPHINE/NALOXONE 2 MG/0.5 MG FILM PACKET ONE ×2 (03:23→16:54)
[2017-05-19] MEDS: BUPRENORPHINE/NALOXONE 1 EACH, BUPRENORPHINE/NALOXONE 2 EACH SL SCH ×2 (06:40→17:48)
[2017-05-19] MEDS: PRENATAL VITAMINS W/ FOLIC ACID TABLET (FP) PO SCH (09:53)
[2017-05-19] MEDS: NICOTINE 14 MG/24 HOURS TOPICAL PATCH TD SCH (09:53)
[2017-05-19] MEDS: cloNIDine HCL 0.1 MG TABLET PO PRN (18:46)
[2017-05-19] MEDS: traZODone HCL 100 MG TABLET (FP) PO SCH (21:49)
[2017-05-19] MEDS: THIAMINE HCL 100 MG TABLET (FP) PO SCH (21:49)
[2017-05-19] MEDS: IBUPROFEN 400 MG TABLET (FP) PO PRN (21:52)
[2017-05-20] MEDS: BUPRENORPHINE HCL/NALOXONE 12 MG-3 MG SL FILM PACKET SL SCH ×2 (06:38→17:40)
[2017-05-20] MEDS: NICOTINE 14 MG/24 HOURS TOPICAL PATCH TD SCH (09:15)
[2017-05-20] MEDS: PRENATAL VITAMINS W/ FOLIC ACID TABLET (FP) PO SCH (09:15)
[2017-05-20] MEDS: IBUPROFEN 400 MG TABLET (FP) PO PRN (09:15)
[2017-05-20] MEDS: hydrOXYzine PAMOATE 50 MG CAPSULE (FP) PO PRN ×2 (12:38→21:38)
[2017-05-20] MEDS: THIAMINE HCL 100 MG TABLET (FP) PO SCH (21:36)
[2017-05-20] MEDS: traZODone HCL 100 MG TABLET (FP) PO SCH (21:36)
[2017-05-21] MEDS: BUPRENORPHINE HCL/NALOXONE 12 MG-3 MG SL FILM PACKET SL SCH ×2 (06:54→17:45)
[2017-05-21] MEDS: PRENATAL VITAMINS W/ FOLIC ACID TABLET (FP) PO SCH (10:34)
[2017-05-21] MEDS: hydrOXYzine PAMOATE 50 MG CAPSULE (FP) PO PRN ×2 (10:34→21:53)
[2017-05-21] MEDS: NICOTINE 14 MG/24 HOURS TOPICAL PATCH TD SCH (10:35)
[2017-05-21] MEDS: MICONAZOLE NITRATE 100 MG SUPP SUPP.VAG PV SCH (21:50)
[2017-05-21] MEDS: THIAMINE HCL 100 MG TABLET (FP) PO SCH (21:50)
[2017-05-21] MEDS: traZODone HCL 100 MG TABLET (FP) PO SCH (21:50)
[2017-05-21] MEDS: IBUPROFEN 400 MG TABLET (FP) PO PRN (22:00)
[2017-05-22] MEDS: BUPRENORPHINE HCL/NALOXONE 12 MG-3 MG SL FILM PACKET SL SCH ×2 (07:07→17:46)
[2017-05-22] MEDS: PRENATAL VITAMINS W/ FOLIC ACID TABLET (FP) PO SCH (10:00)
[2017-05-22] MEDS: NICOTINE 14 MG/24 HOURS TOPICAL PATCH TD SCH (10:00)
[2017-05-22] MEDS: hydrOXYzine PAMOATE 50 MG CAPSULE (FP) PO PRN ×3 (10:02→21:53)
[2017-05-22] MEDS: IBUPROFEN 400 MG TABLET (FP) PO PRN (17:46)
[2017-05-22] MEDS ORDERED: PT OWN MED DRAWER 7, Y5N ONE ×2 (19:48→23:28)
[2017-05-22] MEDS: traZODone HCL 100 MG TABLET (FP) PO SCH (21:51)
[2017-05-22] MEDS: THIAMINE HCL 100 MG TABLET (FP) PO SCH (21:51)
[2017-05-22] MEDS: MICONAZOLE NITRATE 100 MG SUPP SUPP.VAG PV SCH (21:53)
[2017-05-22] MEDS: diphenhydrAMINE HCL 50 MG CAPSULE PO PRN (23:29)
[2017-05-23] MEDS: BUPRENORPHINE HCL/NALOXONE 12 MG-3 MG SL FILM PACKET SL SCH ×2 (06:39→18:04)
[2017-05-23] MEDS: hydrOXYzine PAMOATE 50 MG CAPSULE (FP) PO PRN ×3 (06:40→21:44)
[2017-05-23] MEDS: PRENATAL VITAMINS W/ FOLIC ACID TABLET (FP) PO SCH (10:07)
[2017-05-23] MEDS: NICOTINE 14 MG/24 HOURS TOPICAL PATCH TD SCH (10:07)
[2017-05-23] MEDS: traZODone HCL 100 MG TABLET (FP) PO SCH (21:43)
[2017-05-23] MEDS: THIAMINE HCL 100 MG TABLET (FP) PO SCH (21:43)
[2017-05-23] MEDS: IBUPROFEN 400 MG TABLET (FP) PO PRN (21:44)
[2017-05-23] MEDS: MICONAZOLE NITRATE 100 MG SUPP SUPP.VAG PV SCH (21:45)
[2017-05-24] MEDS: BUPRENORPHINE HCL/NALOXONE 12 MG-3 MG SL FILM PACKET SL SCH ×2 (07:29→17:47)
[2017-05-24] MEDS ORDERED: SUVOREXANT 10 MG TABLET PO PRN (09:20)
[2017-05-24] MEDS: NICOTINE 14 MG/24 HOURS TOPICAL PATCH TD SCH (10:39)
[2017-05-24] MEDS: PRENATAL VITAMINS W/ FOLIC ACID TABLET (FP) PO SCH (10:39)
[2017-05-24] MEDS: IBUPROFEN 400 MG TABLET (FP) PO PRN (14:04)
[2017-05-24] MEDS: hydrOXYzine PAMOATE 50 MG CAPSULE (FP) PO PRN ×2 (14:04→21:47)
[2017-05-24] MEDS: THIAMINE HCL 100 MG TABLET (FP) PO SCH (21:45)
[2017-05-24] MEDS: MICONAZOLE NITRATE 100 MG SUPP SUPP.VAG PV SCH (21:46)
[2017-05-25] MEDS: BUPRENORPHINE HCL/NALOXONE 12 MG-3 MG SL FILM PACKET SL SCH ×2 (06:56→18:38)
[2017-05-25] MEDS: NICOTINE 14 MG/24 HOURS TOPICAL PATCH TD SCH (10:49)
[2017-05-25] MEDS: PRENATAL VITAMINS W/ FOLIC ACID TABLET (FP) PO SCH (10:49)
[2017-05-25] MEDS: hydrOXYzine PAMOATE 50 MG CAPSULE (FP) PO PRN ×2 (10:50→21:46)
[2017-05-25] MEDS: IBUPROFEN 400 MG TABLET (FP) PO PRN ×2 (11:16→21:46)
[2017-05-25] MEDS: THIAMINE HCL 100 MG TABLET (FP) PO SCH (21:45)
[2017-05-25] MEDS: MICONAZOLE NITRATE 100 MG SUPP SUPP.VAG PV SCH (21:47)
[2017-05-26] MEDS: BUPRENORPHINE HCL/NALOXONE 12 MG-3 MG SL FILM PACKET SL SCH ×2 (06:53→18:23)
[2017-05-26 07:18] VITALS: BP 135/77; PULSE 69; TEMP 97.8
[2017-05-26] MEDS: hydrOXYzine PAMOATE 50 MG CAPSULE (FP) PO PRN ×2 (10:18→21:51)
[2017-05-26] MEDS: PRENATAL VITAMINS W/ FOLIC ACID TABLET (FP) PO SCH (10:18)
[2017-05-26] MEDS: NICOTINE 14 MG/24 HOURS TOPICAL PATCH TD SCH (10:19)
--- NOTE | 2017-05-26 11:42 | PN ---
Psychiatric Progress Note Vital Signs: Vital Signs Period Temp Pulse Resp BP Sys/Gillespie Pulse Ox Last 24 Hr 97.8 F 69 18 135/77 Date of Session: 05/26/17 Chief Complaint:: Discharge visit HPI: Patient addressed Cocaine and Opioid dependence comorbid with Substance induced mood disorder. ROS: Significant for BA,Low back/Neck pain. Current Medications: Active Medications Generic Name Dose Route Start Last Admin Trade Name Freq PRN Reason Stop Dose Admin Acetaminophen 650 mg 05/14/17 19:55 05/24/17 17:48 Tylenol - PO 650 mg Q4H PRN Administration PAIN Al Hydroxide/Mg Hydroxide 30 ml 05/14/17 19:55 Mylanta Oral Suspension - PO Q6H PRN DYSPEPSIA Albuterol Sulfate 2 puff 05/14/17 20:04 Ventolin Hfa Inhaler - IH Q4H PRN SHORT OF BREATH/WHEEZING Buprenorphine/Naloxone 1 each 05/20/17 06:00 05/26/17 06:53 Suboxone 12 Mg-3 Mg Sl Film SL 05/27/17 05:59 1 each BID@0600,1800 GIACOMO Administration Diphenhydramine HCl 50 mg 05/14/17 19:55 05/22/17 23:29 Benadryl - PO 50 mg HSMR1 PRN Administration INSOMNIA Eucalyptus/Menthol/Phenol/Sorbitol 1 each 05/14/17 19:55 05/19/17 21:53 Cepastat Lozenge - MM 1 each Q4H PRN Administration SORE THROAT Guaifenesin 10 ml 05/14/17 19:55 Robitussin Dm - PO Q6H PRN COUGH Hydroxyzine Pamoate 50 mg 05/14/17 19:55 05/26/17 10:18 Vistaril - PO 50 mg Q4H PRN Administration AGITATION Ibuprofen 400 mg 05/14/17 19:55 05/25/17 21:46 Motrin - PO 400 mg Q6H PRN Administration SEVERE PAIN Loperamide HCl 4 mg 05/14/17 19:55 Imodium - PO Q6H PRN DIARRHEA Magnesium Citrate 300 ml 05/14/17 19:55 Citroma - PO Q48H PRN CONSTIPATION Magnesium Hydroxide 30 ml 05/14/17 19:55 Milk Of Magnesia - PO DAILY PRN CONSTIPATION Metoclopramide HCl 10 mg 05/14/17 20:00 05/16/17 23:10 Reglan - PO 10 mg Q6H PRN Administration NAUSEA AND/OR VOMITING Miconazole Nitrate 100 mg 05/21/17 22:00 05/25/17 21:47 Monistat-7 Vaginal Suppository - PV 05/27/17 22:01 1 supp HS GIACOMO Administration Nicotine 14 mg 05/15/17 10:00 05/26/17 10:19 Nicoderm Patch - TD Not Given DAILY GIACOMO Nicotine Polacrilex 2 mg 05/14/17 19:55 05/19/17 09:54 Nicorette Gum - BC 2 mg Q2H PRN Administration NICOTINE REPLACEMENT RX Multivit/Folic Acid/Iron 1 tab 05/15/17 10:00 05/26/17 10:18 Vitamins (Sjr) - PO 1 tab DAILY GIACOMO Administration Pseudoephedrine/Triprolidine 1 combo 05/14/17 19:55 Actifed - PO TID PRN NASAL CONGESTION Thiamine HCl 100 mg 05/14/17 22:00 05/25/17 21:45 Vitamin B1 - PO 100 mg HS GIACOMO Administration Current Side Effect: No Lab tests ordered: No Lab tests reviewed: Yes Provider note:: Patient will complete this program tomorrow 05/27/17.She has met her treatment goals and will continue to address her issues on outpatient basis at [facility] in [facility].Patient will continue Suboxone 12 mg film s/l daily,planning to taper off [facility].Patient identifies her areas of difficulties,behaviors which contribute to relapse and support,coping skills she can utilze to maintain recovery. Patient is stable for discharge tomorrow 05/27/17. Total face to face time:: 30 Mental Status Exam - Mental Status Exam Alert and Oriented to: Time, Place, Person Cognitive Function: Grossly Intact Patient Appearance: Well Groomed Mood: Anxious Affect: Mood Congruent Patient Behavior: Cooperative Speech Pattern: Clear Voice Loudness: Normal Thought Process: Goal Oriented Thought Disorder: Not Present Hallucinations: Denies Suicidal Ideation: Denies Homicidal Ideation: Denies Insight/Judgement: Fair Sleep: Fair Appetite: Good Muscle strength/Tone: Normal Gait/Station: Normal Psychiatric Treatment Plan - Problem List (1) Nicotine dependence Qualifiers: Nicotine product type: cigarettes Substance use status: in withdrawal Qualified Code(s): F17.213 - Nicotine dependence, cigarettes, with withdrawal (2) Asthma Qualifiers: Asthma severity: mild persistent Asthma complication type: with status asthmaticus Qualified Code(s): J45.32 - Mild persistent asthma with status asthmaticus (5) Chronic back pain Qualifiers: Back pain location: low back pain Back pain laterality: bilateral Sciatica presence: without sciatica Qualified Code(s): M54.5 - Low back pain; G89.29 - Other chronic pain (6) Cocaine dependence Qualifiers: Substance use status: uncomplicated Qualified Code(s): F14.20 - Cocaine dependence, uncomplicated
[2017-05-26] MEDS ORDERED: QUEtiapine FUMARATE 25 MG TABLET (FP) PO ONE (15:57)
[2017-05-26] MEDS: MICONAZOLE NITRATE 100 MG SUPP SUPP.VAG PV SCH (21:50)
[2017-05-26] MEDS: THIAMINE HCL 100 MG TABLET (FP) PO SCH (21:50)
[2017-05-26] MEDS: IBUPROFEN 400 MG TABLET (FP) PO PRN (21:51)
[2017-05-27] MEDS ORDERED: BUPRENORPHINE HCL/NALOXONE 12 MG-3 MG SL FILM PACKET SL SCH (06:00)
== END 2017-05-27 07:08 | disposition home or self-care (01) | DRG 772 ==
LOC: YASAS 19:05 → Y3E 19:43
PROVIDERS: ADMIT Psychiatry & Neurology Psychiatry; ATTEND Psychiatry & Neurology Psychiatry
PROC: HZ42ZZZ Group Counseling for Substance Abuse Treatment, Cognitive-Behavioral (ICD-10-PCS; principal; 2017-05-19)
DX: F11.20 Opioid dependence, uncomplicated (principal); F13.230 Sedative, hypnotic or anxiolytic dependence with withdrawal, uncomplicated; F14.20 Cocaine dependence, uncomplicated; F17.213 Nicotine dependence, cigarettes, with withdrawal; J45.32 Mild persistent asthma with status asthmaticus; F19.24 Other psychoactive substance dependence with psychoactive substance-induced mood disorder; M54.5 Low back pain; G89.29 Other chronic pain; Z90.49 Acquired absence of other specified parts of digestive tract
CPT/HCPCS: 36415; 80053; 81003; 85027; 86593; 87389; 93005; 93010